=== PATIENT | male | born 1950 | race African-American/Black ===

== ENCOUNTER 2020-03-09 13:27 | Inpatient (IN) | payer OTHER ==
[2020-03-09] MEDS ORDERED: ACETAMINOPHEN 325 MG TABLET (FP) PO ONE (15:18)
[2020-03-09] MEDS ORDERED: SODIUM CHLORIDE 2,286 ML IV ONE (16:23)
[2020-03-09 16:50] LABS: BASO % 0.2 % (0-2.0); EOS % 0.3 % (0-4.5); HEMATOCRIT 32.2 % (35.4-49); LYMPH % 5.4 % (8-40); MCH 28.9 pg (25.7-33.7); MCHC 31.2 g/dl (32.0-35.9); MEAN CELL VOLUME 92.9 fl (80-96); MEAN PLT VOLUME 10.6 fl (7.5-11.1); MONO % 8.5 % (3.8-10.2); NEUT % 85.6 % (42.8-82.8); PLATELET COUNT 209 K/MM3 (134-434); RBC 3.47 M/mm3 (4.00-5.60); RDW 13.3 % (11.9-15.9); WHITE BLOOD COUNT 12.9 K/mm3 (4.0-10.0)
[2020-03-09 16:56] LABS: INR 1.08 (0.83-1.09)
[2020-03-09 17:15] LABS: POTASSIUM 4.5 mmol/L (3.5-5.1)
[2020-03-09 17:17] LABS: CALCIUM 9.4 mg/dL (8.5-10.1)
[2020-03-09 17:18] LABS: ALBUMIN 3.4 g/dl (3.4-5.0)
[2020-03-09 17:20] LABS: CREATININE 4.9 mg/dL (0.55-1.3)
[2020-03-09 17:22] LABS: BILIRUBIN,TOTAL 0.4 mg/dL (0.2-1)
[2020-03-09 17:39] LABS: BF WBC & OTHER NUCLEATED CELLS 27935 /mm3
[2020-03-09 18:14] LABS: BODY FLUID MACROPHAGES 7 %
[2020-03-09] MEDS ORDERED: VANCOMYCIN 1,000 MG in DEXTROSE 5%-WATER - 250 ML IVPB ONE (18:42)
[2020-03-09] MEDS ORDERED: ACETAMINOPHEN 325 MG TABLET (FP) PO PRN (23:25)
[2020-03-09] MEDS ORDERED: SODIUM CHLORIDE 1,000 ML IV SCH (23:30)
[2020-03-09 23:49] LABS: PHOSPHOROUS 4.2 mg/dL (2.5-4.9); URIC ACID 9.1 mg/dL (2.6-7.2)
[2020-03-10 00:28] LABS: EPI CELLS 5 /uL (0-25.1); HYALINE CASTS 0 /uL (0-3.1); PH,URINE 5.5 (5.0-8.0); URINE APPEARANCE CLEAR; URINE BACTERIA 5 /uL (0-1359); URINE BILIRUBIN NEGATIVE (NEGATIVE); URINE COLOR YELLOW; URINE GLUCOSE (UA) NEGATIVE (NEGATIVE); URINE KETONE NEGATIVE (NEGATIVE); URINE LEUK ESTERASE TRACE (NEGATIVE); URINE NITRITE NEGATIVE (NEGATIVE); URINE PROTEIN 1+ (NEGATIVE); URINE RBC 14 /uL (0-23.9); URINE UROBILINOGEN 0.2 mg/dL (0.2-1.0); URINE WBC 26 /uL (0-25.8)
[2020-03-10] MEDS: DOXYCYCLINE INJECTION 100 MG in DEXTROSE 5%-WATER - 100 ML IVPB SCH ×2 (01:40→09:39)
[2020-03-10] MEDS ORDERED: DOXYCYCLINE HYCLATE 100 MG VIAL ONE (02:04)
[2020-03-10] MEDS: SODIUM CHLORIDE 1,000 ML IV SCH ×2 (02:33→09:36)
[2020-03-10 03:16] LABS: SYPHILIS W/ RPR CONF NON-REACTIVE (NONREACTIVE)
[2020-03-10 03:45] LABS: HIV INTERPRETATION NEGATIVE (NEGATIVE)
[2020-03-10] MEDS: HEPARIN NA (PORCINE) 5,000 UNITS/ML 1ML VIAL SQ SCH ×3 (06:34→21:18)
[2020-03-10] MEDS ORDERED: PNEUMOC 13-VAL CONJ-DIP CRM/PF 0.5 ML DISP.SYRIN IM ONE (08:00)
[2020-03-10] MEDS ORDERED: FLU VACCINE (FLULAVAL) PF 60 MCG/0.5 ML SYRINGE 2020-2021 IM ONE (08:00)
[2020-03-10 08:13] LABS: BASO % 0.6 % (0-2.0); HEMATOCRIT 29.4 % (35.4-49); HEMOGLOBIN 9.3 GM/dL (11.7-16.9); LYMPH % 4.1 % (8-40); MCH 29.2 pg (25.7-33.7); MCHC 31.5 g/dl (32.0-35.9); MEAN CELL VOLUME 92.8 fl (80-96); MEAN PLT VOLUME 10.2 fl (7.5-11.1); MONO % 8.1 % (3.8-10.2); NEUT % 86.2 % (42.8-82.8); PLATELET COUNT 185 K/MM3 (134-434); RBC 3.17 M/mm3 (4.00-5.60); RDW 13.1 % (11.9-15.9); WHITE BLOOD COUNT 10.5 K/mm3 (4.0-10.0)
[2020-03-10 08:33] LABS: RETICULOCYTES 0.68 % (0.5-1.5)
[2020-03-10 08:43] LABS: POTASSIUM 4.3 mmol/L (3.5-5.1)
[2020-03-10 08:45] LABS: CALCIUM 8.8 mg/dL (8.5-10.1)
[2020-03-10 08:46] LABS: ALBUMIN 2.8 g/dl (3.4-5.0); BLOOD UREA NITROGEN 51.5 mg/dL (7-18); MAGNESIUM 2.2 mg/dL (1.8-2.4)
[2020-03-10 08:48] LABS: URIC ACID 8.6 mg/dL (2.6-7.2)
[2020-03-10 08:49] LABS: CREATININE 4.6 mg/dL (0.55-1.3); PHOSPHOROUS 4.2 mg/dL (2.5-4.9)
[2020-03-10 08:50] LABS: BILIRUBIN,TOTAL 0.4 mg/dL (0.2-1); TOT PROT 6.7 g/dl (6.4-8.2)
[2020-03-10] MEDS ORDERED: ACETAMINOPHEN 1000 MG/100 ML VIAL (NON FORMULARY) IVPB PRN (09:08)
[2020-03-10] MEDS ORDERED: cefTRIAXone SODIUM 1 GM VIAL ONE (09:25)
[2020-03-10] MEDS ORDERED: DEXTROSE 5%-WATER - 50 ML IVPB ONE (09:25)
[2020-03-10] MEDS: traMADol HCL 50 MG TABLET PO PRN ×2 (09:33→20:45)
[2020-03-10 09:35] LABS: CRYSTALS,SYNOVIAL FLUID POSITIVE
[2020-03-10] MEDS: CEFTRIAXONE 1 GM in DEXTROSE 5%-WATER - 50 ML IVPB SCH (09:40)
[2020-03-10] MEDS ORDERED: PATIENT'S OWN MEDICATION (NON-FORMULARY) (Valsartan/Hydrochlorothiazide [Valsartan-Hctz 80 PO SCH (10:00)
[2020-03-10] MEDS ORDERED: VALSARTAN 80 MG TABLET PO SCH (10:00)
[2020-03-10] MEDS ORDERED: HYDROCHLOROTHIAZIDE 12.5 MG CAPSULE (FP) PO SCH (10:00)
[2020-03-10] MEDS ORDERED: CEFTRIAXONE 1 GM in DEXTROSE 5%-WATER - 50 ML IVPB SCH (10:00)
[2020-03-10] MEDS ORDERED: DOXYCYCLINE INJECTION 100 MG in DEXTROSE 5%-WATER 100 ML IVPB SCH (10:34)
[2020-03-10] MEDS: predniSONE 20 MG TABLET (UD) PO SCH (12:49)
[2020-03-10] MEDS: amLODIPine BESYLATE 2.5 MG TABLET (FP) PO SCH (15:15)
[2020-03-11] MEDS: SODIUM CHLORIDE 1,000 ML IV SCH ×2 (01:13→03:35)
[2020-03-11] MEDS: traMADol HCL 50 MG TABLET PO PRN ×2 (06:11→12:56)
[2020-03-11] MEDS: HEPARIN NA (PORCINE) 5,000 UNITS/ML 1ML VIAL SQ SCH ×3 (06:11→21:31)
[2020-03-11 08:10] LABS: BASO % 0.1 % (0-2.0); HEMATOCRIT 33.3 % (35.4-49); HEMOGLOBIN 10.3 GM/dL (11.7-16.9); LYMPH % 2.4 % (8-40); MCH 28.8 pg (25.7-33.7); MCHC 30.8 g/dl (32.0-35.9); MEAN CELL VOLUME 93.4 fl (80-96); MEAN PLT VOLUME 10.8 fl (7.5-11.1); MONO % 5.1 % (3.8-10.2); NEUT % 92.4 % (42.8-82.8); PLATELET COUNT 252 K/MM3 (134-434); RBC 3.57 M/mm3 (4.00-5.60); RDW 13.6 % (11.9-15.9)
[2020-03-11 08:40] LABS: POTASSIUM 5.3 mmol/L (3.5-5.1)
[2020-03-11 08:42] LABS: ALBUMIN 2.7 g/dl (3.4-5.0); BLOOD UREA NITROGEN 53.3 mg/dL (7-18); CALCIUM 8.8 mg/dL (8.5-10.1); MAGNESIUM 2.1 mg/dL (1.8-2.4)
[2020-03-11 08:45] LABS: CREATININE 4.5 mg/dL (0.55-1.3)
[2020-03-11 08:46] LABS: PHOSPHOROUS 5.1 mg/dL (2.5-4.9)
[2020-03-11 08:47] LABS: BILIRUBIN,TOTAL 0.3 mg/dL (0.2-1); TOT PROT 6.9 g/dl (6.4-8.2)
[2020-03-11] MEDS ORDERED: cefTRIAXone SODIUM 1 GM VIAL ONE (08:59)
[2020-03-11] MEDS ORDERED: DEXTROSE 5%-WATER - 50 ML IVPB ONE (08:59)
[2020-03-11] MEDS: SODIUM CHLORIDE 0.45% 1,000 ML IV SCH ×2 (09:26→21:31)
[2020-03-11] MEDS: amLODIPine BESYLATE 2.5 MG TABLET (FP) PO SCH (09:27)
[2020-03-11] MEDS: predniSONE 20 MG TABLET (UD) PO SCH (09:27)
[2020-03-11 09:38] LABS: ANISOCYTOSIS 0; MACROCYTOSIS 0; PLATELET ESTIMATE NORMAL
[2020-03-11] MEDS: CEFTRIAXONE 1 GM in DEXTROSE 5%-WATER - 50 ML IVPB SCH (10:05)
[2020-03-11] MEDS: TAMSULOSIN HCL 0.4 MG CAP PO SCH (12:56)
[2020-03-11] MEDS ORDERED: SODIUM BICARBONATE 650 MG TABLET PO ONE (13:59)
[2020-03-11] MEDS ORDERED: SODIUM ZIRCONIUM CYCLOSILICATE (LOKELMA) 5 GM PACKET PO ONE (13:59)
[2020-03-12] MEDS: HEPARIN NA (PORCINE) 5,000 UNITS/ML 1ML VIAL SQ SCH ×3 (06:36→22:00)
[2020-03-12 07:59] LABS: BASO % 0.2 % (0-2.0); HEMATOCRIT 34.1 % (35.4-49); HEMOGLOBIN 10.6 GM/dL (11.7-16.9); LYMPH % 5.2 % (8-40); MCH 29.2 pg (25.7-33.7); MCHC 31.1 g/dl (32.0-35.9); MEAN CELL VOLUME 93.7 fl (80-96); MONO % 6.1 % (3.8-10.2); NEUT % 88.5 % (42.8-82.8); PLATELET COUNT 286 K/MM3 (134-434); RBC 3.64 M/mm3 (4.00-5.60); RDW 13.3 % (11.9-15.9); WHITE BLOOD COUNT 16.8 K/mm3 (4.0-10.0)
[2020-03-12 08:13] LABS: BLOOD UREA NITROGEN 59.4 mg/dL (7-18)
[2020-03-12 08:14] LABS: ALBUMIN 2.9 g/dl (3.4-5.0); CALCIUM 9.4 mg/dL (8.5-10.1)
[2020-03-12 08:20] LABS: CREATININE 4.2 mg/dL (0.55-1.3); MAGNESIUM 2.2 mg/dL (1.8-2.4); PHOSPHOROUS 4.9 mg/dL (2.5-4.9)
[2020-03-12 08:21] LABS: BILIRUBIN,TOTAL 0.3 mg/dL (0.2-1); TOT PROT 7.2 g/dl (6.4-8.2)
[2020-03-12] MEDS ORDERED: cefTRIAXone SODIUM 1 GM VIAL ONE (08:53)
[2020-03-12] MEDS ORDERED: DEXTROSE 5%-WATER - 50 ML IVPB ONE (08:53)
[2020-03-12] MEDS: SODIUM CHLORIDE 0.45% 1,000 ML IV SCH ×2 (09:06→20:42)
[2020-03-12] MEDS: predniSONE 20 MG TABLET (UD) PO SCH (09:07)
[2020-03-12] MEDS: traMADol HCL 50 MG TABLET PO PRN ×2 (09:07→22:00)
[2020-03-12] MEDS: TAMSULOSIN HCL 0.4 MG CAP PO SCH (09:07)
[2020-03-12] MEDS: CEFTRIAXONE 1 GM in DEXTROSE 5%-WATER - 50 ML IVPB SCH (09:07)
[2020-03-12] MEDS: amLODIPine BESYLATE 2.5 MG TABLET (FP) PO SCH (09:15)
[2020-03-12] MEDS ORDERED: CYCLOBENZAPRINE HCL 5 MG TABLET PO ONE (10:41)
[2020-03-12 15:09] LABS: E.chaff HME IgG Negative (Neg:<1:64)
[2020-03-12 16:09] LABS: BABESIA MICROTI ANTIBODY IGG <1:10 (Neg:<1:10); BABESIA MICROTI ANTIBODY IGM <1:10 (Neg:<1:10)
[2020-03-12 17:07] LABS: IgG Ab 23 kDa Band Absent (.); IgG Ab 28 kDa Band Present (.)
[2020-03-12] MEDS: DOXYCYCLINE HYCLATE 100 MG CAPSULE PO SCH (17:37)
[2020-03-13] MEDS: traMADol HCL 50 MG TABLET PO PRN ×2 (05:39→22:24)
[2020-03-13] MEDS: HEPARIN NA (PORCINE) 5,000 UNITS/ML 1ML VIAL SQ SCH ×3 (05:39→22:24)
[2020-03-13] MEDS: SODIUM CHLORIDE 0.45% 1,000 ML IV SCH ×3 (06:47→18:40)
[2020-03-13 07:16] LABS: BASO % 0.4 % (0-2.0); EOS % 0.2 % (0-4.5); HEMATOCRIT 30.7 % (35.4-49); HEMOGLOBIN 9.8 GM/dL (11.7-16.9); LYMPH % 6.5 % (8-40); MCH 29.6 pg (25.7-33.7); MCHC 31.9 g/dl (32.0-35.9); MEAN CELL VOLUME 92.9 fl (80-96); MEAN PLT VOLUME 10.5 fl (7.5-11.1); MONO % 7.4 % (3.8-10.2); NEUT % 85.5 % (42.8-82.8); PLATELET COUNT 270 K/MM3 (134-434); RBC 3.31 M/mm3 (4.00-5.60); RDW 13.2 % (11.9-15.9); WHITE BLOOD COUNT 10.7 K/mm3 (4.0-10.0)
[2020-03-13 07:26] LABS: POTASSIUM 4.8 mmol/L (3.5-5.1)
[2020-03-13 07:31] LABS: CALCIUM 8.7 mg/dL (8.5-10.1)
[2020-03-13 07:32] LABS: ALBUMIN 2.6 g/dl (3.4-5.0); BLOOD UREA NITROGEN 67.8 mg/dL (7-18)
[2020-03-13 07:35] LABS: CREATININE 3.9 mg/dL (0.55-1.3); PHOSPHOROUS 4.7 mg/dL (2.5-4.9)
[2020-03-13 07:36] LABS: BILIRUBIN,TOTAL 0.3 mg/dL (0.2-1)
[2020-03-13 07:37] LABS: TOT PROT 6.2 g/dl (6.4-8.2)
[2020-03-13] MEDS: predniSONE 20 MG TABLET (UD) PO SCH (09:03)
[2020-03-13] MEDS: TAMSULOSIN HCL 0.4 MG CAP PO SCH (09:04)
[2020-03-13] MEDS: DOXYCYCLINE HYCLATE 100 MG CAPSULE PO SCH ×2 (09:05→17:23)
[2020-03-13] MEDS: amLODIPine BESYLATE 2.5 MG TABLET (FP) PO SCH (09:05)
[2020-03-13 09:20] LABS: ANISOCYTOSIS 1+; MACROCYTOSIS 1+; PLATELET ESTIMATE NORMAL
[2020-03-13] MEDS: ACETAMINOPHEN 500 MG TABLET (FP) PO PRN (10:34)
[2020-03-14] MEDS: traMADol HCL 50 MG TABLET PO PRN ×2 (05:38→21:28)
[2020-03-14] MEDS: HEPARIN NA (PORCINE) 5,000 UNITS/ML 1ML VIAL SQ SCH ×3 (06:06→21:29)
[2020-03-14 07:16] LABS: BASO % 0.2 % (0-2.0); EOS % 0.6 % (0-4.5); HEMATOCRIT 33.8 % (35.4-49); HEMOGLOBIN 10.8 GM/dL (11.7-16.9); MCH 29.7 pg (25.7-33.7); MCHC 31.8 g/dl (32.0-35.9); MEAN CELL VOLUME 93.2 fl (80-96); MEAN PLT VOLUME 10.9 fl (7.5-11.1); NEUT % 82.2 % (42.8-82.8); PLATELET COUNT 282 K/MM3 (134-434); RBC 3.63 M/mm3 (4.00-5.60); RDW 13.3 % (11.9-15.9); WHITE BLOOD COUNT 11.2 K/mm3 (4.0-10.0)
[2020-03-14 08:42] LABS: POTASSIUM 4.9 mmol/L (3.5-5.1)
[2020-03-14 08:47] LABS: CALCIUM 8.8 mg/dL (8.5-10.1)
[2020-03-14 08:51] LABS: CREATININE 4.1 mg/dL (0.55-1.3)
[2020-03-14] MEDS ORDERED: PT OWN MED DRAWER 7, Y5N ONE (09:07)
[2020-03-14] MEDS: TAMSULOSIN HCL 0.4 MG CAP PO SCH (09:22)
[2020-03-14] MEDS: ACETAMINOPHEN 500 MG TABLET (FP) PO PRN ×2 (09:22→17:52)
[2020-03-14] MEDS: amLODIPine BESYLATE 2.5 MG TABLET (FP) PO SCH (09:23)
[2020-03-14] MEDS: DOXYCYCLINE HYCLATE 100 MG CAPSULE PO SCH ×2 (09:24→17:53)
[2020-03-14] MEDS: SODIUM CHLORIDE 0.45% 1,000 ML IV SCH ×2 (09:25→16:05)
[2020-03-14] MEDS ORDERED: amLODIPine BESYLATE 5 MG TABLET (FP) PO ONE (11:09)
[2020-03-14] MEDS: predniSONE 10 MG TABLET (UD) PO SCH (12:06)
[2020-03-14 15:45] LABS: EPI CELLS >36 /uL (0-25.1); HYALINE CASTS 6 /uL (0-3.1); PH,URINE 5.5 (5.0-8.0); URINE APPEARANCE CLOUDY; URINE BACTERIA 22 /uL (0-1359); URINE BILIRUBIN NEGATIVE (NEGATIVE); URINE COLOR RED; URINE GLUCOSE (UA) NEGATIVE (NEGATIVE); URINE KETONE NEGATIVE (NEGATIVE); URINE LEUK ESTERASE 2+ (NEGATIVE); URINE NITRITE NEGATIVE (NEGATIVE); URINE PROTEIN 3+ (NEGATIVE); URINE RBC 6727 /uL (0-23.9); URINE UROBILINOGEN 0.2 mg/dL (0.2-1.0); URINE WBC 497 /uL (0-25.8)
[2020-03-15] MEDS: SODIUM CHLORIDE 0.45% 1,000 ML IV SCH ×2 (04:39→10:20)
[2020-03-15] MEDS: HEPARIN NA (PORCINE) 5,000 UNITS/ML 1ML VIAL SQ SCH ×3 (06:52→21:43)
[2020-03-15] MEDS: ACETAMINOPHEN 500 MG TABLET (FP) PO PRN (06:53)
[2020-03-15] MEDS: TAMSULOSIN HCL 0.4 MG CAP PO SCH (09:11)
[2020-03-15] MEDS: amLODIPine BESYLATE 10 MG TABLET (FP) PO SCH (09:11)
[2020-03-15] MEDS: DOXYCYCLINE HYCLATE 100 MG CAPSULE PO SCH ×2 (09:11→17:47)
[2020-03-15] MEDS: predniSONE 10 MG TABLET (UD) PO SCH (09:11)
[2020-03-15 13:39] LABS: POTASSIUM 4.7 mmol/L (3.5-5.1)
[2020-03-15 13:40] LABS: BLOOD UREA NITROGEN 71.5 mg/dL (7-18); CALCIUM 8.3 mg/dL (8.5-10.1)
[2020-03-15 13:44] LABS: CREATININE 3.3 mg/dL (0.55-1.3)
[2020-03-16] MEDS: HEPARIN NA (PORCINE) 5,000 UNITS/ML 1ML VIAL SQ SCH ×3 (05:30→21:22)
[2020-03-16 07:57] LABS: HEMATOCRIT 29.5 % (35.4-49); HEMOGLOBIN 9.4 GM/dL (11.7-16.9); MCH 29.4 pg (25.7-33.7); MCHC 31.7 g/dl (32.0-35.9); MEAN CELL VOLUME 92.8 fl (80-96); MEAN PLT VOLUME 10.1 fl (7.5-11.1); PLATELET COUNT 305 K/MM3 (134-434); RBC 3.18 M/mm3 (4.00-5.60); RDW 13.3 % (11.9-15.9); WHITE BLOOD COUNT 12.3 K/mm3 (4.0-10.0)
[2020-03-16 08:03] LABS: POTASSIUM 4.7 mmol/L (3.5-5.1)
[2020-03-16 08:10] LABS: BLOOD UREA NITROGEN 70.8 mg/dL (7-18); CALCIUM 8.7 mg/dL (8.5-10.1)
[2020-03-16 08:11] LABS: MAGNESIUM 1.8 mg/dL (1.8-2.4)
[2020-03-16 08:14] LABS: CREATININE 3.3 mg/dL (0.55-1.3); PHOSPHOROUS 4.5 mg/dL (2.5-4.9)
[2020-03-16] MEDS ORDERED: PT OWN MED DRAWER 7, Y5N ONE (09:44)
[2020-03-16] MEDS: TAMSULOSIN HCL 0.4 MG CAP PO SCH (09:59)
[2020-03-16] MEDS: ALLOPURINOL 100 MG TABLET (FP) PO SCH (09:59)
[2020-03-16] MEDS: amLODIPine BESYLATE 10 MG TABLET (FP) PO SCH (09:59)
[2020-03-16] MEDS: ACETAMINOPHEN 500 MG TABLET (FP) PO PRN ×2 (10:00→21:22)
[2020-03-16] MEDS ORDERED: predniSONE 20 MG TABLET (UD) PO SCH (10:00)
[2020-03-16] MEDS: DOXYCYCLINE HYCLATE 100 MG CAPSULE PO SCH ×2 (10:02→17:19)
[2020-03-16 11:46] VITALS: BMI 29.0
[2020-03-16] MEDS: SODIUM CHLORIDE 0.45% 1,000 ML IV SCH (13:30)
[2020-03-17] MEDS: SODIUM CHLORIDE 0.45% 1,000 ML IV SCH ×2 (02:04→09:59)
[2020-03-17] MEDS: ACETAMINOPHEN 500 MG TABLET (FP) PO PRN (06:31)
[2020-03-17 07:29] LABS: HEMATOCRIT 31.3 % (35.4-49); HEMOGLOBIN 9.7 GM/dL (11.7-16.9); MCHC 30.9 g/dl (32.0-35.9); MEAN CELL VOLUME 93.8 fl (80-96); MEAN PLT VOLUME 9.9 fl (7.5-11.1); PLATELET COUNT 317 K/MM3 (134-434); RBC 3.33 M/mm3 (4.00-5.60); RDW 13.4 % (11.9-15.9); WHITE BLOOD COUNT 14.4 K/mm3 (4.0-10.0)
[2020-03-17 07:47] LABS: POTASSIUM 5.2 mmol/L (3.5-5.1)
[2020-03-17 08:04] LABS: ALBUMIN 2.7 g/dl (3.4-5.0); BLOOD UREA NITROGEN 66.2 mg/dL (7-18); CALCIUM 8.7 mg/dL (8.5-10.1); MAGNESIUM 1.8 mg/dL (1.8-2.4)
[2020-03-17 08:07] LABS: CREATININE 3.1 mg/dL (0.55-1.3)
[2020-03-17 08:08] LABS: PHOSPHOROUS 4.6 mg/dL (2.5-4.9)
[2020-03-17 08:09] LABS: BILIRUBIN,TOTAL 0.4 mg/dL (0.2-1); TOT PROT 6.3 g/dl (6.4-8.2)
[2020-03-17] MEDS ORDERED: PT OWN MED DRAWER 7, Y5N ONE (09:55)
[2020-03-17] MEDS: ALLOPURINOL 100 MG TABLET (FP) PO SCH (09:58)
[2020-03-17] MEDS: TAMSULOSIN HCL 0.4 MG CAP PO SCH (09:58)
[2020-03-17] MEDS: amLODIPine BESYLATE 10 MG TABLET (FP) PO SCH (09:58)
[2020-03-17] MEDS: DOXYCYCLINE HYCLATE 100 MG CAPSULE PO SCH ×2 (09:58→18:01)
[2020-03-17] MEDS ORDERED: predniSONE 20 MG TABLET (UD) PO ONE (10:00)
[2020-03-17] MEDS ORDERED: SODIUM ZIRCONIUM CYCLOSILICATE (LOKELMA) 5 GM PACKET PO ONE (12:05)
[2020-03-17 14:31] VITALS: BP 162/79; PULSE 103; TEMP 97.5
== END 2020-03-17 18:33 | disposition home or self-care (01) | DRG 868 ==
LOC: JER 13:27 → JERBED 21:14 → J7W 03-10 05:14
PROVIDERS: ADMIT Internal Medicine
PROC: 0S9D3ZX Drainage of Left Knee Joint, Percutaneous Approach, Diagnostic (ICD-10-PCS; principal; 2020-03-09)
DX: A69.20 Lyme disease, unspecified (principal); N17.9 Acute kidney failure, unspecified; E87.2 Acidosis; N13.30 Unspecified hydronephrosis; N39.0 Urinary tract infection, site not specified; M10.9 Gout, unspecified; I10 Essential (primary) hypertension; D64.9 Anemia, unspecified; M13.0 Polyarthritis, unspecified; D63.1 Anemia in chronic kidney disease; G14 Postpolio syndrome; N13.9 Obstructive and reflux uropathy, unspecified; I12.9 Hypertensive chronic kidney disease with stage 1 through stage 4 chronic kidney disease, or unspecified chronic kidney disease; N18.9 Chronic kidney disease, unspecified; R33.9 Retention of urine, unspecified; E87.5 Hyperkalemia; R31.9 Hematuria, unspecified; M25.521 Pain in right elbow; N35.919 Unspecified urethral stricture, male, unspecified site; Z86.12 Personal history of poliomyelitis
CPT/HCPCS: 36415; 71045-TC-FY; 73070-TC-RT-FY; 73562-TC-LT-FY; 74176-TC; 76775-TC; 80048; 80053; 81003; 82272; 82565; 82607; 82728; 82746; 83540; 83550; 83605; 83735; 83970; 84100; 84132; 84300; 84466; 84550; 85025; 85027; 85045; 85610; 85651; 86038; 86140; 86431; 86618; 86666; 86753; 86780; 87040; 87070; 87075; 87086; 87205; 87389; 87491; 87591; 87661; 89060; 90670; 93005; 93010; 93971-TC; 97116-GP; 97161-GP; 99285-25; C9803; G0008; G0009; J1644; Q2036; U0003

== ENCOUNTER 2023-03-19 13:43 | Emergency (ER) | payer OTHER ==
[2023-03-19 14:08] VITALS: TEMP 97.8; BMI 25.8
[2023-03-19] MEDS ORDERED: ASPIRIN 81 MG CHEWABLE TABLETS PO ONE (14:51)
[2023-03-19] MEDS ORDERED: ASPIRIN 81 MG CHEWABLE TABLETS ONE (14:52)
[2023-03-19] MEDS ORDERED: NITROGLYCERIN SUBLINGUAL 1/150 0.4 MG TAB SL ONE (14:53)
[2023-03-19] MEDS ORDERED: TICAGRELOR 90 MG TABLET PO ONE (15:07)
[2023-03-19] MEDS ORDERED: NITROGLYCERIN 25MG/D5W 250ML 25 MG/250 ML ML IVPB ONE (15:13)
[2023-03-19] MEDS ORDERED: TICAGRELOR 90 MG TABLET PO SCH (15:15)
[2023-03-19] MEDS ORDERED: NITROGLYCERIN 25MG/D5W 250ML 25 MG/250 ML ML IVPB SCH (15:15)
[2023-03-19 15:25] LABS: BASO % 0.4 % (0-2.0); EOS % 1.5 % (0-4.5); HEMATOCRIT 32.9 % (35.4-49); HEMOGLOBIN 10.6 GM/dL (11.7-16.9); LYMPH % 18.7 % (8-40); MCH 29.9 pg (25.7-33.7); MCHC 32.3 g/dl (32.0-35.9); MEAN CELL VOLUME 92.7 fl (80-96); MEAN PLT VOLUME 10.8 fl (7.5-11.1); MONO % 9.4 % (3.8-10.2); PLATELET COUNT 177 10^3/uL (134-434); RBC 3.55 M/mm3 (4.00-5.60); RDW 14.1 % (11.9-15.9); WHITE BLOOD COUNT 5.3 K/mm3 (4.0-10.0)
[2023-03-19 15:31] LABS: INR 0.98 (0.83-1.09); PROTHROMBIN TIME (PATIENT) 11.4 SEC (9.7-13.0)
[2023-03-19 15:33] LABS: ACTIVATED PTT 32.9 SECONDS (25.2-36.5)
[2023-03-19 15:35] VITALS: BP 153/97; PULSE 104; RESP 18
[2023-03-19 15:53] LABS: POTASSIUM 4.6 mmol/L (3.5-5.1)
[2023-03-19 15:55] LABS: CALCIUM 8.7 mg/dL (8.5-10.1)
[2023-03-19 15:56] LABS: ALBUMIN 4.1 g/dl (3.4-5.0)
[2023-03-19 15:59] LABS: CREATININE 7.2 mg/dL (0.55-1.3)
[2023-03-19 16:01] LABS: BILIRUBIN,TOTAL 0.2 mg/dL (0.2-1); TOT PROT 8.3 g/dl (6.4-8.2)
== END 2023-03-19 15:36 | disposition short-term general hospital (02) ==
LOC: JER 13:43
PROC: 3E033NZ Introduction of Analgesics, Hypnotics, Sedatives into Peripheral Vein, Percutaneous Approach (ICD-10-PCS; principal; 2023-03-19)
DX: R07.89 Other chest pain (principal); I21.3 ST elevation (STEMI) myocardial infarction of unspecified site; U07.1 COVID-19
CPT/HCPCS: 0241U-QW; 36415; 71045-TC-FY; 80053; 84484; 85025; 85610; 85730; 93005; 93010; 99285-25